=== PATIENT | male | born 1975 | race Caucasian/White ===

== ENCOUNTER 2018-04-01 15:21 | Emergency (ER) | payer SELFPAY ==
[2018-04-01] MEDS ORDERED: HYDROCODONE/APAP 10/325 TAB ONE (17:10)
[2018-04-01] MEDS ORDERED: LIDOCAINE 1% MPF 5 ML VIAL ONE (17:37)
[2018-04-01] MEDS ORDERED: DOXYCYCLINE 100 MG CAP PO ONE (18:19)
--- NOTE | 2018-04-01 18:29 | ER ---
Nurse's Notes [facility] Name: Julian Byers Age: 42 yrs Sex: Male : 1975 Arrival Date: 04/01/2018 Time: 15:23 Bed 15 Private MD: TASH BARROSO Diagnosis: Paronychia Presentation: 04/01 15:57 Presenting complaint: Patient states: He crushed his thumb in a hydraulic press 22 aj1 years ago, since then it swells up, then he would see the doctor and they would give him medications and it would go away. The last time it happened they told him that he had chronic osteomyelitis. Left thumb swelling started Friday, he started taking some Clindamycin he had left over from a previous surgery, but the pain and swelling keeps getting worse. Transition of care: patient was not received from another setting of care. Onset of symptoms was March 29, 2018. Risk Assessment: Do you want to hurt yourself or someone else? Patient reports no desire to harm self or others. Initial Sepsis Screen: Does the patient meet any 2 criteria? HR > 90 bpm. No. Patient's initial sepsis screen is negative. Does the patient have a suspected source of infection? Yes: Other: chronic infection in left thumb. Care prior to arrival: None. 15:57 Method Of Arrival: Ambulatory aj1 15:57 Acuity: ANGELA 3 aj1 Triage Assessment: 16:02 General: Appears in no apparent distress. comfortable, Behavior is calm, cooperative, aj1 appropriate for age. Pain: Complains of pain in dorsal aspect of distal phalanx of right thumb and palmar aspect of distal phalanx of right thumb Pain does not radiate. Pain currently is 10 out of 10 on a pain scale. Quality of pain is described as throbbing. Neuro: Level of Consciousness is awake, alert, obeys commands, Oriented to person, place, time, situation, Speech is normal, Facial symmetry appears normal. Cardiovascular: Patient's skin is warm and dry. Respiratory: Airway is patent Respiratory effort is even, unlabored, Respiratory pattern is regular, symmetrical. Musculoskeletal: Range of motion: limited in right thumb. Historical: - Allergies: 16:02 No Known Allergies; aj1 - Home Meds: 16:02 Baclofen Oral [Active]; gabapentin Oral [Active]; lisinopril 20 mg Oral tab 1 tab twice aj1 a day [Active]; Linn Oral [Active]; - PMHx: 16:02 Hypertension; osteomyelitis - right thumb; aj1 - Immunization history:: Last tetanus immunization: unknown. - Social history:: Smoking status: Patient uses tobacco products, denies chronic smoking, but will smoke occasionally. - Ebola Screening: : Patient denies travel to an Ebola-affected area in the 21 days before illness onset. Screenin:10 Abuse screen: Denies threats or abuse. Denies injuries from another. Nutritional sg screening: No deficits noted. Tuberculosis screening: No symptoms or risk factors identified. Never had TB. Fall Risk None identified. Assessment: 16:20 General: Appears in no apparent distress. comfortable, well groomed, well developed, sg well nourished, Behavior is calm, cooperative, appropriate for age. Pain: Complains of pain in right hand and palmar aspect of distal phalanx of right thumb and dorsal aspect of distal phalanx of right thumb. Neuro: No deficits noted. Cardiovascular: Heart tones S1 S2 present Capillary refill is brisk in bilateral fingers Patient's skin is warm and dry. Chest pain is denied. Respiratory: Airway is patent Respiratory effort is even, Respiratory pattern is regular, symmetrical, Breath sounds are clear. GI: Abdomen is round non-distended, Reports normal bowel habits, tolerance of fluids, tolerance of food. : No signs and/or symptoms were reported regarding the genitourinary system. EENT: No signs and/or symptoms were reported regarding the EENT system. Derm: Skin is pink, warm \\T\\ dry. Musculoskeletal: Circulation, motion, and sensation intact. Range of motion: intact in all extremities, Swelling present in dorsal aspect of distal phalanx of right thumb and palmar aspect of distal phalanx of right thumb redness noted to the right thumb. 17:11 Reassessment: pt reports " a 10 mg Hydrocodone, man this isnt going ot work. Roya been sg taking Percocet and Oxycodone for this thing for years." pt educated that this medication is what is ordered, you can refuse the medication, pt reports understanding, taking medication as prescribed at this time, will continue to monitor. 18:40 Reassessment: Patient appears in no apparent distress at this time. Patient and/or sg family updated on plan of care and expected duration. Pain level reassessed. Patient is alert, oriented x 3, equal unlabored respirations, skin warm/dry/pink. attempt to d/c pt to home as ordered, pt requesting to be re evaluated by the ERP prior to dressing applied to thumb and dc to home, pt requesting the Incision site be packed, awaiting re evaluation prior to dc to home. Reassessment: pt requesting more PO pain medication at this time, ERP Ana MCALLISTER notified, orders received, pt to be medicated as ordered, see EMAR. 19:00 Reassessment: ERP notified that pt is waiting for his wound to be reassessed before he ak1 will go home. no new orders at this time. . 19:32 Reassessment: dressing of triple antibiotic, 4X4 and Kerlix . ak1 Vital Signs: 16:02 BP 131 / 94; Pulse 96; Resp 18; Temp 97.8; Pulse Ox 98% on R/A; Weight 90.72 kg (R); aj1 Height 5 ft. 10 in. (177.80 cm); Pain 10/10; 17:25 BP 136 / 92; Pulse 90; Resp 17; Pulse Ox 99% on R/A; Pain 10/10; sg 16:02 Body Mass Index 28.70 (90.72 kg, 177.80 cm) aj1 ED Course: 15:23 Patient arrived in ED. sb2 15:24 TASH BARROSO is Private Physician. sb2 16:01 Triage completed. aj1 16:02 Arm band placed on Patient placed in waiting room, Patient notified of wait time. aj1 16:40 Pelon Chavez NP is PHCP. pm1 16:40 Julian Greene MD is Attending Physician. pm1 16:43 Ted Vasquez, WEI is Primary Nurse. sg 17:25 Assist provider with I \\T\\ D: of an abscess on Set up I\\T\\D tray. sg 19:01 Patient has correct armband on for positive identification. Bed in low position. Call ak1 light in reach. Side rails up X 1. 19:31 Patient did not have IV access during this emergency room visit. ak1 Administered Medications: 17:11 Drug: Linn 10 mg-325 mg 1 tabs Route: PO; sg 20:05 Follow up: Response: No adverse reaction ak1 17:44 Drug: Lidocaine (1 %) 5 ml {Note: medication administered by Ana HARRIS for sg laceration repair.} Volume: 5 ml; Route: Infiltration; 18:22 Drug: Doxycycline 100 mg Route: PO; sg 20:05 Follow up: Response: No adverse reaction ak1 18:41 Drug: Linn 5 mg-325 mg 1 tabs Route: PO; sg 20:04 Follow up: Response: No adverse reaction ak1 Outcome: 18:28 Discharge ordered by MD. pm1 19:00 Condition: stable ak1 19:31 Discharged to home ambulatory, with family. ak1 19:31 Discharge instructions given to patient, family, Instructed on discharge instructions, follow up and referral plans. no drinking with medication, no driving heavy equipment, medication usage, Demonstrated understanding of instructions, follow-up care, medications, wound care. 19:44 Patient left the ED. ak1 Addendum: 04/04/2018 07:44 Addendum: Culture Results: Positive wound culture. No further action required. Bacteria i w sensitive to prescribed antibiotic. Signatures: Zulema Tim RN RN aj1 Ted Vasquez RN RN Nica Gallagher RN RN iw Krenek, Amber, RN RN ak1 Pelon Chavez NP ADVERTISING ANALYST pm1 Hellen Mtz2
--- NOTE | 2018-04-01 18:29 | EDPHYS ---
Physician Documentation [facility] Name: Julian Byers Age: 42 yrs Sex: Male : 1975 Arrival Date: 04/01/2018 Time: 15:23 Bed 15 Private MD: TASH BARROSO ED Physician Julian Greene HPI: 04/01 17:00 This 42 yrs old Male presents to ER via Ambulatory with complaints of THUMB pm1 INFECTION. 17:00 The patient or guardian reports pain, swelling. The complaints affect the dorsal aspect pm1 of distal phalanx of right thumb. Context: The problem was sustained at home, resulted from an unknown cause. Onset: The symptoms/episode began/occurred yesterday. Modifying factors: The symptoms are alleviated by nothing, the symptoms are aggravated by movement. Associated signs and symptoms: Pertinent negatives: cyanosis distally, decreased sensation distally, fever, numbness distally, tingling distally. Severity of symptoms: in the emergency department the symptoms are actually worse. The patient has experienced similar episodes in the past, multiple times. The patient has not recently seen a physician. 17:00 patient started taking left over clindamycin. Patient reports inability to see his pain pm1 management for 1 month and he is out of his Percocet and oxycodones. Historical: - Allergies: 16:02 No Known Allergies; aj1 - Home Meds: 16:02 Baclofen Oral [Active]; gabapentin Oral [Active]; lisinopril 20 mg Oral tab 1 tab twice aj1 a day [Active]; Marydel Oral [Active]; - PMHx: 16:02 Hypertension; osteomyelitis - right thumb; aj1 - Immunization history:: Last tetanus immunization: unknown. - Social history:: Smoking status: Patient uses tobacco products, denies chronic smoking, but will smoke occasionally. - Ebola Screening: : Patient denies travel to an Ebola-affected area in the 21 days before illness onset. ROS: 17:00 Constitutional: Negative for fever, chills, and weight loss, Eyes: Negative for injury, pm1 pain, redness, and discharge, ENT: Negative for injury, pain, and discharge, Neck: Negative for injury, pain, and swelling, Cardiovascular: Negative for chest pain, palpitations, and edema, Respiratory: Negative for shortness of breath, cough, wheezing, and pleuritic chest pain, Abdomen/GI: Negative for abdominal pain, nausea, vomiting, diarrhea, and constipation, Back: Negative for injury and pain. 17:00 Skin: Negative for injury, rash, and discoloration, Neuro: Negative for headache, weakness, numbness, tingling, and seizure. 17:00 MS/extremity: Positive for swelling, tenderness, of the dorsal aspect of distal phalanx of right thumb. Exam: 17:00 Constitutional: This is a well developed, well nourished patient who is awake, alert, pm1 and in no acute distress. Head/Face: Normocephalic, atraumatic. Chest/axilla: Normal chest wall appearance and motion. Nontender with no deformity. No lesions are appreciated. Cardiovascular: Regular rate and rhythm with a normal S1 and S2. No gallops, murmurs, or rubs. Normal PMI, no JVD. No pulse deficits. Respiratory: Lungs have equal breath sounds bilaterally, clear to auscultation and percussion. No rales, rhonchi or wheezes noted. No increased work of breathing, no retractions or nasal flaring. Abdomen/GI: Soft, non-tender, with normal bowel sounds. No distension or tympany. No guarding or rebound. No evidence of tenderness throughout. Back: No spinal tenderness. No costovertebral tenderness. Full range of motion. 17:00 Skin: Appearance: normal except for affected area, swelling, noted on the dorsal aspect of distal phalanx of right thumb. 17:00 Neuro: Orientation: is normal, Motor: moves all fours, Sensation: is normal, no obvious gross deficits. Vital Signs: 16:02 BP 131 / 94; Pulse 96; Resp 18; Temp 97.8; Pulse Ox 98% on R/A; Weight 90.72 kg (R); aj1 Height 5 ft. 10 in. (177.80 cm); Pain 10/10; 17:25 BP 136 / 92; Pulse 90; Resp 17; Pulse Ox 99% on R/A; Pain 10/10; sg 16:02 Body Mass Index 28.70 (90.72 kg, 177.80 cm) aj1 MDM: 16:54 Patient medically screened. pm1 18:26 Data reviewed: vital signs. Data interpreted: Pulse oximetry: on room air is 99 %. pm1 Interpretation: normal. Counseling: I had a detailed discussion with the patient and/or guardian regarding: the historical points, exam findings, and any diagnostic results supporting the discharge/admit diagnosis, the need for outpatient follow up, a hand specialist, to return to the emergency department if symptoms worsen or persist or if there are any questions or concerns that arise at home. 04/01 16:57 Order name: Wound Culture pm1 04/01 16:57 Order name: Incision \T\ Drainage Setup; Complete Time: 17:23 pm1 Administered Medications: 17:11 Drug: Marydel 10 mg-325 mg 1 tabs Route: PO; sg 20:05 Follow up: Response: No adverse reaction ak1 17:44 Drug: Lidocaine (1 %) 5 ml {Note: medication administered by Ana HARRIS for sg laceration repair.} Volume: 5 ml; Route: Infiltration; 18:22 Drug: Doxycycline 100 mg Route: PO; sg 20:05 Follow up: Response: No adverse reaction ak1 18:41 Drug: Marydel 5 mg-325 mg 1 tabs Route: PO; sg 20:04 Follow up: Response: No adverse reaction ak1 Disposition: 04/01/18 18:28 Discharged to Home. Impression: Paronychia. - Condition is Stable. - Discharge Instructions: Paronychia. - Prescriptions for Doxycycline Hyclate 100 mg Oral Tablet - take 1 tablet by ORAL route every 12 hours; 20 tablet. Tylenol- Codeine #3 300-30 mg Oral Tablet - take 2 tablets by ORAL route every 6 hours As needed; 20 tablet. - Medication Reconciliation Form, Thank You Letter, Antibiotic Education, Prescription Opioid Use form. - Follow up: Emergency Department; When: As needed; Reason: Worsening of condition. Follow up: Private Physician; When: 2 - 3 days; Reason: Recheck today's complaints, Continuance of care, Re-evaluation by your physician. - Problem is new. - Symptoms have improved. Addendum: 04/03/2018 14:48 Co-signature as Attending Physician, Julian Greene MD I agree with the assessment and w a plan of care. Signatures: Dispatcher [employer] Zulema Altamirano RN RN aj1 Ted Vasquez RN RN sg Krenek, Amber, RN RN ak1 Pelon Chavez SAFETY EQUIPMENT TESTER SAFETY EQUIPMENT TESTER pm1 Julian Greene MD MD wa Corrections: (The following items were deleted from the chart) 04/01 19:44 18:28 04/01/2018 18:28 Discharged to Home. Impression: Paronychia. Condition is Stable. ak1 Forms are Medication Reconciliation Form, Thank You Letter, Antibiotic Education, Prescription Opioid Use. Follow up: Emergency Department; When: As needed; Reason: Worsening of condition. Follow up: Private Physician; When: 2 - 3 days; Reason: Recheck today's complaints, Continuance of care, Re-evaluation by your physician. Problem is new. Symptoms have improved. pm1
[2018-04-01] MEDS ORDERED: HYDROCODONE/APAP 5/325 MG TAB ONE (18:44)
== END 2018-04-01 19:44 | disposition home or self-care (01) ==
LOC: ER 15:21
DX: L03.011 Cellulitis of right finger (principal); I10 Essential (primary) hypertension; F17.200 Nicotine dependence, unspecified, uncomplicated
CPT/HCPCS: 87070; 87077; 87186; 87205; 99283

== ENCOUNTER 2018-04-15 08:59 | Emergency (ER) | payer SELFPAY ==
[2018-04-15] MEDS ORDERED: DOXYCYCLINE 100 MG CAP PO ONE (09:18)
[2018-04-15] MEDS ORDERED: LIDOCAINE 1% MPF 5 ML VIAL ONE (09:18)
[2018-04-15] MEDS ORDERED: TETANUS & DIPHTHERIA TOX,ADULT 0.5 ML VIAL ONE (09:18)
--- NOTE | 2018-04-15 09:46 | EDPHYS ---
Physician Documentation [facility] Name: Julian Byers Age: 42 yrs Sex: Male : 1975 Arrival Date: 04/15/2018 Time: 09:01 Bed 16 Private MD: TASH BARROSO ED Physician Hi Patel HPI: 04/15 09:13 This 42 yrs old Male presents to ER via Unassigned with complaints of Thumb snw Injury - Infection. 09:13 Onset: The symptoms/episode began/occurred years ago pt sustained crush injury, it snw recurrently becomes infected. The patient has experienced similar episodes in the past, chronically. The patient has not recently seen a physician. pt states Workman's comp statute of limitations does not allow coverage and because it was a workman's comp injury his own insurance wont cover a hand surgeon. Historical: - Allergies: 09:17 Vancomycin; sv - PMHx: 09:17 Hypertension; osteomyelitis - right thumb; Back pain; sv - PSHx: 09:17 Tonsillectomy; leg; Adenoids; sv - Immunization history:: Adult Immunizations up to date. - Social history:: Smoking status: Patient uses tobacco products, smokes one-half pack cigarettes per day. - Ebola Screening: : No symptoms or risks identified at this time. ROS: 09:13 Constitutional: Negative for fever, chills, and weight loss, Eyes: Negative for injury, snw pain, redness, and discharge, ENT: Negative for injury, pain, and discharge, Neck: Negative for injury, pain, and swelling, Cardiovascular: Negative for chest pain, palpitations, and edema, Respiratory: Negative for shortness of breath, cough, wheezing, and pleuritic chest pain, Abdomen/GI: Negative for abdominal pain, nausea, vomiting, diarrhea, and constipation, Back: Negative for injury and pain, : Negative for injury, bleeding, discharge, and swelling, Skin: Negative for injury, rash, and discoloration, Neuro: Negative for headache, weakness, numbness, tingling, and seizure. 09:13 MS/extremity: Positive for erythema, swelling, tenderness, of the dorsal aspect of distal phalanx of right thumb. Exam: 09:13 Constitutional: This is a well developed, well nourished patient who is awake, alert, snw and in no acute distress. Head/Face: Normocephalic, atraumatic. Eyes: Pupils equal round and reactive to light, extra-ocular motions intact. Lids and lashes normal. Conjunctiva and sclera are non-icteric and not injected. Cornea within normal limits. Periorbital areas with no swelling, redness, or edema. ENT: Nares patent. No nasal discharge, no septal abnormalities noted. Tympanic membranes are normal and external auditory canals are clear. Oropharynx with no redness, swelling, or masses, exudates, or evidence of obstruction, uvula midline. Mucous membranes moist. Neck: Trachea midline, no thyromegaly or masses palpated, and no cervical lymphadenopathy. Supple, full range of motion without nuchal rigidity, or vertebral point tenderness. No Meningismus. Chest/axilla: Normal chest wall appearance and motion. Nontender with no deformity. No lesions are appreciated. Cardiovascular: Regular rate and rhythm with a normal S1 and S2. No gallops, murmurs, or rubs. Normal PMI, no JVD. No pulse deficits. Respiratory: Lungs have equal breath sounds bilaterally, clear to auscultation and percussion. No rales, rhonchi or wheezes noted. No increased work of breathing, no retractions or nasal flaring. Abdomen/GI: Soft, non-tender, with normal bowel sounds. No distension or tympany. No guarding or rebound. No evidence of tenderness throughout. Back: No spinal tenderness. No costovertebral tenderness. Full range of motion. Skin: Warm, dry with normal turgor. Normal color with no rashes, no lesions, and no evidence of cellulitis. Neuro: Awake and alert, GCS 15, oriented to person, place, time, and situation. Cranial nerves II-XII grossly intact. Motor strength 5/5 in all extremities. Sensory grossly intact. Cerebellar exam normal. Normal gait. 09:13 Musculoskeletal/extremity: Extremities: noted in the dorsal aspect of distal phalanx of right thumb: erythema, pain, swelling, tenderness, Circulation is intact in all extremities. Sensation intact. Vital Signs: 09:07 BP 116 / 77; Pulse 83; Resp 18; Temp 98.2; Pulse Ox 100% ; Weight 90.72 kg; Height 5 sv ft. 10 in. (177.80 cm); Pain 8/10; 10:15 BP 115 / 70; Pulse 78; Resp 18; Temp 98.0; Pulse Ox 99% on R/A; ph 09:07 Body Mass Index 28.70 (90.72 kg, 177.80 cm) sv Procedures: 09:42 I \T\ D: Incision and drainage was performed for an abscess of the right thumb Prepped snw with hibiclens. Anesthetized with 8 ml's 1% Lidocaine. Incised with #11 blade. Drained purulent fluid. serosanguinous fluid. Dressing: pressure dressing the patient tolerated the procedure well. 09:47 Nerve block: (digital) of dorsal aspect of distal phalanx of right thumb Medication: snw Lidocaine 1% without epinephrine Amount: 7 mls were injected, Effect: the patient has resolution of the pain, Set up for procedure. Performed by Tiffany HOGAN Patient tolerated well. MDM: 09:09 Patient medically screened. snw 09:41 Data reviewed: vital signs, nurses notes. Data interpreted: Pulse oximetry: on room air snw is 100 %. Interpretation: normal. Counseling: I had a detailed discussion with the patient and/or guardian regarding: the historical points, exam findings, and any diagnostic results supporting the discharge/admit diagnosis, the need for outpatient follow up, to return to the emergency department if symptoms worsen or persist or if there are any questions or concerns that arise at home. Special discussion: Based on the history and exam findings, there is no indication for further emergent testing or inpatient evaluation. I discussed with the patient/guardian the need to see the hand specialist for further evaluation of the symptoms. Administered Medications: 09:20 Drug: Hibiclens 4 % 1 application Route: Topical; Site: affected area; ph 10:15 Follow up: Response: No adverse reaction ph 09:26 Drug: Tetanus-Diphtheria Toxoid Adult 0.5 ml {Explosive Operator Supervisor: [employer]. Exp: ph 06/11/2020. Lot #: [id number]. } Route: IM; Site: right deltoid; 10:15 Follow up: Response: No adverse reaction ph 09:26 Drug: Doxycycline 100 mg Route: PO; ph 10:15 Follow up: Response: No adverse reaction ph 09:27 Drug: Lidocaine (1 %) 1 vials Volume: 20 ml; Route: Infiltration; ph 10:15 Follow up: Response: No adverse reaction; Pain is decreased ph Disposition: 17:52 Co-signature as Attending Physician, Hi Patel MD. rn Disposition: 04/15/18 09:45 Discharged to Home. Impression: Nail disorder, unspecified, Cellulitis of right finger. - Condition is Stable. - Discharge Instructions: Paronychia, VIS, Tetanus, Diphtheria (Td) - [facility]. - Prescriptions for Doxycycline Hyclate 100 mg Oral Tablet - take 1 tablet by ORAL route every 12 hours; 28 tablet. Diclofenac Sodium 75 mg Oral Tablet Sustained Release - take 1 tablet by ORAL route 2 times per day; 30 tablet. - Medication Reconciliation Form, Thank You Letter, Antibiotic Education, Prescription Opioid Use form. - Follow up: Saman Vivar MD; When: 1 - 2 days; Reason: Recheck today's complaints, Continuance of care, Re-evaluation by your physician. Signatures: Nancy Gilmore RN RN Tiffany Vargsa, SOUP MIXER-C SOUP MIXER-Csnw Hi Patel MD MD rn Le RaysvilleGermaine RN RN ph Corrections: (The following items were deleted from the chart) 10:15 09:45 04/15/2018 09:45 Discharged to Home. Impression: Nail disorder, unspecified; ph Cellulitis of right finger. Condition is Stable. Forms are Medication Reconciliation Form, Thank You Letter, Antibiotic Education, Prescription Opioid Use. Follow up: Saman Vivar; When: 1 - 2 days; Reason: Recheck today's complaints, Continuance of care, Re-evaluation by your physician. snw
--- NOTE | 2018-04-15 09:46 | ER ---
Nurse's Notes [facility] Name: Julian Byers Age: 42 yrs Sex: Male : 1975 Arrival Date: 04/15/2018 Time: 09:01 Bed 16 Private MD: TASH BARROSO Diagnosis: Nail disorder, unspecified;Cellulitis of right finger Presentation: 04/15 09:07 Presenting complaint: Patient states: right thumb redness and swelling has increased sv since being seen here in the ER 2 weeks ago. Pt reports a 24 year old crushing injury and having a 1/4 tip of the bone removed and has had problems since then. Transition of care: patient was not received from another setting of care. Onset of symptoms is unknown. Care prior to arrival: None. 09:07 Method Of Arrival: Ambulatory sv 09:07 Acuity: ANGELA 3 sv 09:41 Risk Assessment: Do you want to hurt yourself or someone else? Patient reports no ph desire to harm self or others. Initial Sepsis Screen: Does the patient meet any 2 criteria? No. Patient's initial sepsis screen is negative. Does the patient have a suspected source of infection? Yes: Skin breakdown/wound. Historical: - Allergies: 09:17 Vancomycin; sv - PMHx: 09:17 Hypertension; osteomyelitis - right thumb; Back pain; sv - PSHx: 09:17 Tonsillectomy; leg; Adenoids; sv - Immunization history:: Adult Immunizations up to date. - Social history:: Smoking status: Patient uses tobacco products, smokes one-half pack cigarettes per day. - Ebola Screening: : No symptoms or risks identified at this time. Screenin:41 Abuse screen: Denies threats or abuse. Denies injuries from another. Nutritional ph screening: No deficits noted. Tuberculosis screening: No symptoms or risk factors identified. Fall Risk None identified. Assessment: 09:34 General: Appears in no apparent distress. comfortable, slender, well groomed, Behavior ph is calm, cooperative, appropriate for age, Denies fever, feeling ill. Pain: Complains of pain in dorsal aspect of distal phalanx of right thumb and palmar aspect of distal phalanx of right thumb. Neuro: Level of Consciousness is awake, alert, obeys commands, Oriented to person, place, time, situation. Cardiovascular: Capillary refill < 3 seconds Patient's skin is warm and dry. Respiratory: Airway is patent Respiratory effort is even, unlabored, Respiratory pattern is regular, symmetrical. 09:40 Derm: Skin is healthy with good turgor, Skin is pink, warm \T\ dry. Musculoskeletal: ph Circulation, motion, and sensation intact. Range of motion: intact in all extremities, Swelling present in palmar aspect of distal phalanx of right thumb and dorsal aspect of distal phalanx of right thumb. Vital Signs: 09:07 BP 116 / 77; Pulse 83; Resp 18; Temp 98.2; Pulse Ox 100% ; Weight 90.72 kg; Height 5 sv ft. 10 in. (177.80 cm); Pain 8/10; 10:15 BP 115 / 70; Pulse 78; Resp 18; Temp 98.0; Pulse Ox 99% on R/A; ph 09:07 Body Mass Index 28.70 (90.72 kg, 177.80 cm) sv ED Course: 09:01 Patient arrived in ED. sb2 09:02 TASH BARROSO is Private Physician. sb2 09:07 Arm band placed on right wrist. sv 09:08 [facility] Carm[facility] F[facility]-C [facility]. snw 09:09 Hi Patel MD is Attending Physician. snw 09:17 Triage completed. sv 09:25 Germaine Lanza, WEI is Primary Nurse. ph 09:40 Assist provider with nerve block (digital) of palmar aspect of proximal phalanx of ph right thumb Set up for procedure. Performed by Tiffany HOGAN Patient tolerated well. 09:42 Patient has correct armband on for positive identification. Bed in low position. Call ph light in reach. Side rails up X 1. Pulse ox on. NIBP on. 09:44 Saman Vivar MD is Referral Physician. snw 10:15 Patient did not have IV access during this emergency room visit. ph Administered Medications: 09:20 Drug: Hibiclens 4 % 1 application Route: Topical; Site: affected area; ph 10:15 Follow up: Response: No adverse reaction ph 09:26 Drug: Tetanus-Diphtheria Toxoid Adult 0.5 ml {Crm Consultant: Kashmi. Exp: ph 06/11/2020. Lot #: [id number]. } Route: IM; Site: right deltoid; 10:15 Follow up: Response: No adverse reaction ph 09:26 Drug: Doxycycline 100 mg Route: PO; ph 10:15 Follow up: Response: No adverse reaction ph 09:27 Drug: Lidocaine (1 %) 1 vials Volume: 20 ml; Route: Infiltration; ph 10:15 Follow up: Response: No adverse reaction; Pain is decreased ph Outcome: 09:45 Discharge ordered by MD. vitale 10:15 Patient left the ED. ph 10:15 Discharged to home ambulatory. ph 10:15 Condition: good 10:15 Discharge instructions given to patient, Instructed on discharge instructions, follow up and referral plans. medication usage, Demonstrated understanding of instructions, follow-up care, medications, Prescriptions given X 2. Signatures: Nancy Gilmroe, RN Tiffany Fried, SAFETY NET MAKER-C SAFETY NET MAKER-[place] Germaine Lanza RN RN Hellen Mtz sb2
== END 2018-04-15 10:15 | disposition home or self-care (01) ==
LOC: ER 08:59
PROC: 0H9FXZZ Drainage of Right Hand Skin, External Approach (ICD-10-PCS; principal; 2018-04-15)
DX: L03.011 Cellulitis of right finger (principal); L60.9 Nail disorder, unspecified; Z88.1 Allergy status to other antibiotic agents; F17.210 Nicotine dependence, cigarettes, uncomplicated; I10 Essential (primary) hypertension; M86.9 Osteomyelitis, unspecified
CPT/HCPCS: 64450; 90714; 99284